=== PATIENT | female | born 1960 ===

== ENCOUNTER 2017-08-09 13:02 | Emergency (ER) | payer BC ==
[2017-08-09] MEDS ORDERED: Albuterol 0.083% Inhal Sol (2.5 mg/3 mL) UD IH STA (13:45)
--- NOTE | 2017-08-09 13:49 | C.PDOC ---
History Of Present Illness 56 yo female w/o significant PMHx come in for evaluation of cold sx for past 2 days associated with bodyaches, fever, chills, sore throat, dry cough. Otherwise, pt denies lethargy, severe headache, drooling, neck pain, dyspnea, CP , SOB, wheezing, abd. pain, V/D, UTI sx. Ambulate to Ed for evaluation, appears in pain. Time Seen by Provider: 08/09/17 13:35 Chief Complaint (Nursing): Cough, Cold, Congestion History Per: Patient Onset/Duration Of Symptoms: Gradual Past Medical History Reviewed: Historical Data, Nursing Documentation, Vital Signs Vital Signs: Last Vital Signs Temp 98.6 F 08/09/17 13:20 Pulse 94 H 08/09/17 13:20 Resp 20 08/09/17 13:20 BP 113/75 08/09/17 13:20 Pulse Ox 98 08/09/17 13:20 - Medical History PMH: No Chronic Diseases Family History: States: No Known Family Hx - Social History Hx Tobacco Use: No Hx Alcohol Use: No Hx Substance Use: No - Immunization History Hx Tetanus Toxoid Vaccination: No Hx Influenza Vaccination: No Hx Pneumococcal Vaccination: No Review Of Systems Except As Marked, All Systems Reviewed And Found Negative. Constitutional: Positive for: Fever, Chills, Malaise ENT: Positive for: Nose Discharge, Nose Congestion, Throat Pain. Negative for: Ear Discharge Cardiovascular: Negative for: Chest Pain, Palpitations, Edema, Light Headedness Respiratory: Positive for: Cough. Negative for: Shortness of Breath, Wheezing Gastrointestinal: Negative for: Abdominal Pain, Diarrhea Genitourinary: Negative for: Dysuria Musculoskeletal: Negative for: Neck Pain Skin: Negative for: Rash Neurological: Negative for: Altered Mental Status, Headache, Dizziness Physical Exam - Physical Exam Appears: Well, Non-toxic, No Acute Distress Skin: Normal Color, Warm, Dry, No Rash Head: Normacephalic Eye(s): bilateral: PERRL Nose: No Flaring, Discharge (B/L nasal congestion with clear rhinorrhea) Oral Mucosa: Moist, No Drooling Throat: Erythema (mild B/L), No Drooling Neck: Trachea Midline, Supple Cardiovascular: Rhythm Regular, No JVD Respiratory: No Decreased Breath Sounds, No Accessory Muscle Use, No Stridor, No Wheezing Gastrointestinal/Abdominal: Soft, No Tenderness, No Distention, No Guarding Back: No CVA Tenderness Extremity: Normal ROM, No Deformity, No Swelling Neurological/Psych: Oriented x3, Normal Speech ED Course And Treatment O2 Sat by Pulse Oximetry: 98 Pulse Ox Interpretation: Normal Progress Note: On re-evaluation, pt is afebrile, hemodynamicaly stable. non- toxic. PUlseOx 98% RA. ENT: no acute findings. neck: Supple, (-) meningeal sign. Lungs: CTA B/L, BS equal B/L. Abd: soft, (-) guarding, (-) rebound. Neurologicaly intact. Pt has clinical findings c/w acute bronchitis. Pt advised. ref. to f/u with PMD in 2-3 days for re-eval. return to ED if anyw orsening or new changes. Disposition Counseled Patient/Family Regarding: Diagnosis, Need For Followup, Rx Given - Disposition Disposition: HOME/ ROUTINE Disposition Time: 13:46 Condition: STABLE Additional Instructions: ENCOURAGE FLUIDS TAKE MEDICATION PRESCRIBED FOLLOW UP WITH PMD IN 2-3 DAYS FOR RE-EVALUATION. RETURN TO ED IF ANY WORSENING OR NEW CHANGES. Prescriptions: Benzonatate [Tessalon Perle] 100 mg PO TID #14 capsule Cefdinir [Omnicef] 300 mg PO BID #14 cap Oseltamivir Phosphate [Tamiflu] 75 mg PO BID #10 capsule Instructions: Acute Bronchitis Forms: [facility] (Kyr[place]z), Work Excuse - Clinical Impression Clinical Impression: Bronchitis
[2017-08-09] MEDS ORDERED: Albuterol 0.083% Inhal Sol (2.5 mg/3 mL) UD ONE (14:09)
[2017-08-09 14:54] VITALS: BP 100/61; PULSE 81; RESP 18; TEMP 98.8; O2SAT 97
== END 2017-08-09 14:54 | disposition home or self-care (01) ==
LOC: C.ER 13:02
DX: J40 Bronchitis, not specified as acute or chronic (principal)